=== PATIENT | female | born 1960 | race Caucasian/White ===

== ENCOUNTER 2017-01-16 12:10 | Emergency (ER) | payer SELFPAY ==
[2017-01-16 13:26] VITALS: BP 104/61
--- NOTE | 2017-01-16 13:43 | UC ---
Ear Complaint HPI - HPI Summary HPI Summary: patient has developed severe left ear pain, noted drainage and swelling behind left ear - History of Current Complaint Chief Complaint: UCEar Stated Complaint: LEFT EAR PAIN Time Seen by Provider: 01/16/17 13:35 Hx Obtained From: Patient ?: No Onset/Duration: Sudden Onset, Lasting Days Severity Initially: Moderate Severity Currently: Severe Alleviating Factors: Nothing Associated Signs/Symptoms: Positive: Discharge, Swelling @ - Allergies/Home Medications Allergies/Adverse Reactions: Allergies Allergy/AdvReac Type Severity Reaction Status Date / Time Erythromycin AdvReac Mild yeast Verified 11/21/15 13:45 infection Home Medications: Home Medications Lisinopril TAB* [Prinivil TAB*] 10 mg PO DAILY 01/16/17 [History Confirmed 01/16] PMH/Surg Hx/FS Hx/Imm Hx Previously Healthy: Yes Endocrine History Of: Denies: Diabetes Cardiovascular History Of: Reports: Cardiac Disorders - Lont QT, Hypertension Respiratory History Of: Reports: Asthma - Surgical History Surgical History: Yes Surgery Procedure, Year, and Place: 2 C-Sections. Left Ear Cholesteoma, 1994, Dr. Bonilla - Family History Known Family History: Positive: None Negative: Cardiac Disease, Hypertension - Social History Alcohol Use: Occasionally Substance Use Type: None Smoking Status (MU): Heavy Every Day Tobacco Smoker Type: Cigarettes Amount Used/How Often: 1 PPD Length of Time of Smoking/Using Tobacco: Since Age 18 Have You Smoked in the Last Year: Yes Household Exposure Type: Cigarettes - Immunization History Most Recent Influenza Vaccination: Not the season Review of Systems Constitutional: Negative Skin: Negative Eyes: Negative ENT: Ear Ache Respiratory: Negative Cardiovascular: Negative Gastrointestinal: Negative Genitourinary: Negative Motor: Negative Neurovascular: Negative Musculoskeletal: Negative Neurological: Negative Psychological: Negative All Other Systems Reviewed And Are Negative: Yes Physical Exam Triage Information Reviewed: Yes Appearance: Well-Nourished, Ill-Appearing, Pain Distress Vital Signs: Initial Vital Signs Temp 98.3 F 01/16/17 13:18 Pulse 76 01/16/17 13:18 Resp 16 01/16/17 13:18 BP 104/61 01/16/17 13:18 Pulse Ox 99 01/16/17 13:18 Vital Signs Reviewed: Yes Eye Exam: Normal Eyes: Positive: Conjunctiva Clear ENT: Positive: Pharyngeal erythema, TM bulging, TM dull, TM red, Other: - drainage out of left ear Dental Exam: Normal Neck exam: Normal Neck: Positive: Supple, Nontender, Enlarged Nodes @ - behind left ear and down the left of neck Respiratory Exam: Normal Respiratory: Positive: Chest non-tender, Lungs clear, Normal breath sounds Cardiovascular Exam: Normal Cardiovascular: Positive: RRR, No Murmur, Pulses Normal Abdominal Exam: Normal Abdomen Description: Positive: Nontender, No Organomegaly, Soft Bowel Sounds: Positive: Present Musculoskeletal Exam: Normal Musculoskeletal: Positive: Strength Intact, ROM Intact, No Edema Neurological Exam: Normal Neurological: Positive: Alert, Muscle Tone Normal Psychological Exam: Normal Skin Exam: Normal Ear Complaint Course/Dx - Course Course Of Treatment: hx obtained, exam performed, meds reviewed, treated for left otitis media and externa, recommend follow up with PCP on friday - Differential Dx/Diagnosis Differential Diagnosis/HQI/PQRI: Cellulitis, Otitis Externa, Otitis Media, Trauma, URI Provider Diagnoses: left otitis media. left otitis externa. lymphadenopathy Discharge - Discharge Plan Condition: Stable Disposition: HOME Prescriptions: Amoxicillin/Clavulanate TAB* [Augmentin TAB 875*] 875 mg PO BID #20 tab Patient Education Materials: Otitis Media (ED), Otitis Externa (ED) Referrals: Lisa Narvaez MD [Primary Care Provider] - Additional Instructions: Start taking the medication today, take 2 doses today and then continue until you have taken the full course. Warm compresses to the ear. Ibuprofen and tylenol for pain and fever. FOLLOW UP WITH YOUR PRIMARY PHYSICIAN OR YOUR ENT IN 3-4 Days sooner if not experienceing improvment.
== END 2017-01-16 13:55 | disposition home or self-care (01) ==
LOC: UCCORT 12:10
DX: H66.92 Otitis media, unspecified, left ear (principal); H60.92 Unspecified otitis externa, left ear; R59.1 Generalized enlarged lymph nodes; Z88.1 Allergy status to other antibiotic agents; I10 Essential (primary) hypertension; J45.909 Unspecified asthma, uncomplicated; F17.210 Nicotine dependence, cigarettes, uncomplicated
CPT/HCPCS: 99212; G0463